=== PATIENT | female | born 1975 | race Caucasian/White ===

== ENCOUNTER 2022-01-07 05:35 | Inpatient (IN) | payer BC ==
[2022-01-04 11:23] LABS: BASOPHILS % (AUTO) 0.6 % (0-1); EOSINOPHILS % (AUTO) 0.7 % (0-6); LYMPHOCYTES # (AUTO) 0.9 X10'3 (1.1-4.8); LYMPHOCYTES % (AUTO) 21.2 % (21-51); MEAN CORPUSCULAR HEMOGLOBIN 29.5 PG (27.0-31.0); MEAN CORPUSCULAR HGB CONC 33.6 g/dL (33.0-36.5); MEAN CORPUSCULAR VOLUME 87.8 FL (78-98); MEAN PLATELET VOLUME 9.8 FL (7.4-10.4); MONOCYTES # (AUTO) 0.2 X10'3 (0-0.9); MONOCYTES % (AUTO) 5.5 % (2-12); NEUTROPHILS # (AUTO) 2.9 X10'3 (1.8-7.7); PRE OP HEMATOCRIT 40.2 % (35.0-45.0); PRE OP HEMOGLOBIN 13.5 g/dL (12.0-16.0); PRE OP PLATELET COUNT 246 X10'3 (140-440); RED BLOOD COUNT 4.57 X10'6 (4.20-5.60); RED CELL DISTRIBUTION WIDTH 14.9 % (11.5-14.5)
[2022-01-04 11:31] LABS: ALBUMIN 4.3 G/DL (3.4-5.0); ALBUMIN/GLOBULIN RATIO 1.1 (1.1-1.5); ALKALINE PHOSPHATASE 54 IU/L (46-116); BLOOD UREA NITROGEN 7 MG/DL (7-18); BUN/CREATININE RATIO 11.5 (6.6-38.0); CALCIUM 8.8 MG/DL (8.5-10.1); CHLORIDE 104 MMOL/L (99-107); CREATININE 0.61 MG/DL (0.40-0.90); PRE OP ALT 18 U/L (30-65); PRE OP ANION GAP 12 (8-16); PRE OP AST 13 U/L (10-37); PRE OP BILIRUB, TOTAL 0.3 MG/DL (0.0-1.0); PRE OP GLUCOSE 94 MG/DL (70-104); PRE OP POTASSIUM 3.6 MMOL/L (3.4-5.1); PRE OP SODIUM 143 MMOL/L (135-145); TOTAL CARBON DIOXIDE 27.3 MMOL/L (24-32); TOTAL PROTEIN 8.3 G/DL (6.4-8.2); eGFR > 90 ML/MIN
[2022-01-04 11:32] LABS: HCG SERUM QL NEGATIVE
[2022-01-07] VITALS (20 sets, daily range): BP systolic 98–133; BP diastolic 56–91
[~2022-01-07] VITALS: Ht 157.5 cm; Wt 60.9 kg
[~2022-01-07 05:35] MED LIST: ACET-2119 PO; ALBU8HFA PO; acetaminophen 325mg tablet PO ONE; albuterol 2.5 MG/3 ML nebule NEB ONE; ceFOXitin 2GM-NS 100mL ADDvant 100 ML IV ONE; celeCOXIB 100mg capsule PO ONE; famotidine 20mg tablet PO ONE; phenazopyridine 100mg tablet PO ONE; ringers solution, lacted 1,000 ML IV SCH
[2022-01-07] MEDS ORDERED: BUPIVAcaine 0.5% inj/PF 30 ML ONE (06:42)
[2022-01-07] MEDS ORDERED: clindamycin phosphate 40gm vag cream ONE (06:58)
[2022-01-07] MEDS ORDERED: fentaNYL /PF 50mcg/ml 5ml ampule ONE (07:30)
[2022-01-07] MEDS ORDERED: rocuronium 10mg/ml inj IV ONE (07:30)
[2022-01-07] MEDS ORDERED: propofol inj 20 ML IV ONE (07:30)
[2022-01-07] MEDS ORDERED: vasoPRESSIN 20 units/ml inj. ONE (07:54)
[2022-01-07] MEDS ORDERED: dexamethasone sod phosphate 4mg/ml inj. ONE (07:57)
[2022-01-07] MEDS ORDERED: BUPIVAcaine 0.5% inj/PF 30 ml vial IJ ONE (08:08)
[2022-01-07] MEDS ORDERED: ondansetron/PF 4mg/2ml inj IV PRN ×2 (08:25→10:15)
[2022-01-07] MEDS ORDERED: meperidine/PF 25mg/ml syringe IV PRN ×3 (08:25)
[2022-01-07] MEDS ORDERED: morphine 2 MG/ML inj. syringe IV PRN (08:25)
[2022-01-07] MEDS ORDERED: morphine 4 MG/ML inj SYRINge IV PRN (08:25)
[2022-01-07] MEDS ORDERED: proCHLORperazine 10 MG/2 ml inj IV PRN (08:25)
[2022-01-07] MEDS ORDERED: ringers solution, lacted 1,000 ML IV SCH (08:25)
[2022-01-07] MEDS: ringers solution, lacted 1,000 ML IV SCH ×2 (10:15→16:57)
[2022-01-07] MEDS ORDERED: temazepam 15mg capsule PO PRN (10:15)
[2022-01-07] MEDS ORDERED: naloxone 0.4 mg/ml inj IV PRN (10:15)
[2022-01-07] MEDS ORDERED: phenazopyridine 100mg tablet PO PRN (10:15)
[2022-01-07] MEDS ORDERED: mag hydrox/Alum hydrox/simeth 30ml oral suspension PO PRN (10:15)
[2022-01-07] MEDS ORDERED: CADD PCA waste documentation MC PRN (10:15)
[2022-01-07] MEDS ORDERED: magnesium hydroxide 30ml (MOM) UD suspension PO PRN (10:15)
[2022-01-07] MEDS ORDERED: diphenhydrAMINE 50 mg/ml inj IV PRN (10:15)
[2022-01-07] MEDS ORDERED: LORazepam 2 mg/ml vial IV PRN (10:15)
[2022-01-07] MEDS ORDERED: normal saline 500ML IV soln IV PRN (10:15)
[2022-01-07] MEDS ORDERED: acetaminophen 1,000mg/100ml IV 100 ML IV ONE (10:18)
[2022-01-07] MEDS ORDERED: ondansetron/PF 4mg/2ml inj ONE (10:18)
--- NOTE | 2022-01-07 10:21 | NUR ---
Received from OR via BED, accompanied by Anesthesiologist DR LOPEZ and report given by Anesthesiologist AND EXECUTIVE ASSISTANT TO PRESIDENT. PT VERY DROWSY, NO S/S OF DISTRESS/DISCOMFORT. PT W/BIKINI INCISION W/DERMABOND INTACT, VENTURA CATHETER TO GRAVITY DRAINAGE W/DARK ORANGE URINE IN DRAINAGE BAG. Addendum: 01/07/22 at 1049 by Tasha Aguila RN Amended: Links added.
[2022-01-07] MEDS: HYDROmorph./NS 0.2 mg/ml CADD 50 ML IV SCH ×6 (11:20→22:42)
--- NOTE | 2022-01-07 12:01 | NUR ---
Report called to receiving nurse. PT INSTRUCTIONS GIVEN AND PT ABLE TO DEMONSTRATE USE OF ICT SALES ASSISTANT APPROPRIATELY, PAIN IMPROVING. Transferred via BED, NO Belongings, RECEIVING RN AT BEDSIDE TO RECEIVE PT, BLL, CALL LIGHT GIVEN, SIDE RAILS UP X 2. Special Issues communicated to receiving nurse. YES. Addendum: 01/07/22 at 1218 by Tasha Aguila RN Amended: Links added.
--- NOTE | 2022-01-07 12:21 | NUR ---
PT. IN ROOM 348b. POST-OP VS STARTED AND WNL. PT. C/O MILD PAIN IN ABD. CADD PUMP ON AND WORKING PROPERLY. ICE CHIPS AND SOME CLEAR LIQUIDS PROVIDED TO PT. FAMILY AT BEDSIDE. CALL LIGHT WITHIN REACH. TRANSVERSE INCISION LEGISLATORS WITH DERMABOND, NO DRAINAGE NOTED.
[2022-01-07] MEDS: acetaminophen 325mg tablet PO SCH ×2 (13:58→19:15)
[2022-01-07] MEDS: simethicone 80mg chew tab PO SCH ×2 (13:58→17:54)
[2022-01-07] MEDS: ketorolac trometh. 30mg/ml inj. IV PRN ×2 (14:01→20:57)
--- NOTE | 2022-01-07 18:39 | NUR ---
Gave report to Viktoriya CASTILLO.
[2022-01-07] MEDS: docusate sod 100mg capsule PO SCH (20:56)
[2022-01-08] VITALS: BP 135/72
[2022-01-08] MEDS: HYDROmorph./NS 0.2 mg/ml CADD 50 ML IV SCH ×3 (01:00→05:00)
[2022-01-08] MEDS: acetaminophen 325mg tablet PO SCH ×2 (01:23→06:50)
[2022-01-08] MEDS: ringers solution, lacted 1,000 ML IV SCH ×2 (02:02→10:15)
[2022-01-08 06:34] LABS: BASOPHILS % (AUTO) 0.2 % (0-1); EOSINOPHILS % (AUTO) 0.2 % (0-6); HEMATOCRIT 32.6 % (35.0-45.0); HEMOGLOBIN 10.9 g/dl (12.0-16.0); LYMPHOCYTES # (AUTO) 1.1 X10'3 (1.1-4.8); LYMPHOCYTES % (AUTO) 15.2 % (21-51); MEAN CORPUSCULAR HEMOGLOBIN 29.2 PG (27.0-31.0); MEAN CORPUSCULAR HGB CONC 33.3 g/dL (33.0-36.5); MEAN CORPUSCULAR VOLUME 87.7 FL (78-98); MEAN PLATELET VOLUME 10.1 FL (7.4-10.4); MONOCYTES # (AUTO) 0.7 X10'3 (0-0.9); NEUTROPHILS # (AUTO) 5.6 X10'3 (1.8-7.7); NEUTROPHILS % (AUTO) 75.4 % (42-75); PLATELET COUNT 195 X10'3 (140-440); RED BLOOD COUNT 3.72 X10'6 (4.20-5.60); RED CELL DISTRIBUTION WIDTH 14.4 % (11.5-14.5); WHITE BLOOD COUNT 7.5 X10'3 (4.5-11.0)
[2022-01-08 06:44] LABS: ALBUMIN 2.9 G/DL (3.4-5.0); ANION GAP 11 (8-16); BLOOD UREA NITROGEN 12 MG/DL (7-18); BUN/CREATININE RATIO 21.1 (6.6-38.0); CALCIUM 8.4 MG/DL (8.5-10.1); CHLORIDE 105 MMOL/L (99-107); CREATININE 0.57 MG/DL (0.40-0.90); GLUCOSE 88 MG/DL (70-104); SODIUM 142 MMOL/L (135-145); TOTAL CARBON DIOXIDE 25.6 MMOL/L (24-32); eGFR > 90 ML/MIN
[2022-01-08] MEDS: simethicone 80mg chew tab PO SCH (07:45)
[2022-01-08] MEDS: docusate sod 100mg capsule PO SCH (07:45)
[2022-01-08 08:00] VITALS: BP 115/68
[2022-01-08] MEDS ORDERED: oxyCODONE IR 5mg (immed. release) tablet PO PRN (08:00)
--- NOTE | 2022-01-08 12:30 | NUR ---
DISCHARGE NOTE: Pt. is ambulating often, has normal bs, is tolerating a regular diet w/o nausea, and states she has passed gas through "one of her holes". Her daughter is with her and will be her ride home. Pt. is not complaining of any pain at this time. Discharge paperwork discussed with pt. and family at bedside. She is aware if she has any issues with constipation or notices any s/sx infection to notify her doctor right away. Discussed s/sx infection, weight restrictions, activity, diet, f/u, pain medication and possible ASE. Pt. has good verbal feedback. Written information packet on total abdominal hysterectomy, care after also provided to pt. Denies having any questions at this time. Confirmed with pt. is ok to go home. IV DC'd, cannula intact, no s/sx bleeding noted, pressure bandage applied, and pt. aware to remove Coban in a couple hours. She denies having any medication or valuables stored at this hospital. she is already aware of her f/u appointment. Incision looks good at this time, RANDI with no drainage or s/sx infection noted.
== END 2022-01-08 12:48 | disposition home or self-care (01) | DRG 743 ==
LOC: PAS IN 05:35 → SUR 3N 12:05
PROVIDERS: ADMIT Obstetrics & Gynecology; ATTEND Obstetrics & Gynecology
PROC: 0UT70ZZ Resection of Bilateral Fallopian Tubes, Open Approach (ICD-10-PCS; 2022-01-07)
PROC: 0USG0ZZ Reposition Vagina, Open Approach (ICD-10-PCS; 2022-01-07)
PROC: 0JQC0ZZ Repair Pelvic Region Subcutaneous Tissue and Fascia, Open Approach (ICD-10-PCS; 2022-01-07)
PROC: 0TJB8ZZ Inspection of Bladder, Via Natural or Artificial Opening Endoscopic (ICD-10-PCS; 2022-01-07)
PROC: 0UT90ZZ Resection of Uterus, Open Approach (ICD-10-PCS; principal; 2022-01-07 07:26)
DX: D25.9 Leiomyoma of uterus, unspecified (principal); N81.4 Uterovaginal prolapse, unspecified
CPT/HCPCS: Z7506; Z7508; 36415; 80048; 80053; 84703; 85025; 86885; 86900; 86901; 87081; 87635; A4355; A4618; A6250; A6402; A7000; C1758; G0378; J0131; J0694; J1100; J1170; J1885; J2405; J2704; J3010; J3490; J7030; J7120; S0020